=== PATIENT | female | born 1930 | race Asian ===

== ENCOUNTER → 2017-04-07 | Outpatient (CLI) | payer OTHER ==
[~2017-04-07] MED LIST: ACET-2744 PO; ASPI-825 PO; CALC500T62 PO; CLOP75 PO; LOSA50TA37 PO; METF850T2 PO; METO-391 PO; MULT1TAB70 PO; NIFE-4 PO; PANT40TA25 PO; RALO60 PO; SIMV20TA6 PO
== END | disposition home or self-care (01) ==
LOC: RADPV 09:50
PROVIDERS: ATTEND Internal Medicine
DX: M77.31 Calcaneal spur, right foot (principal)

== ENCOUNTER 2017-08-30 15:31 | Emergency (ER) | payer OTHER ==
[~2017-08-30] VITALS: Ht 153 cm; Wt 47.7 kg
[2017-08-30] MEDS ORDERED: SODIUM CHLORIDE 0.9% 250 ML IRRIG SOLUTION BOTTLE IRRIG ONE (16:15)
[2017-08-30 17:40] VITALS: BP 137/68
== END 2017-08-30 18:07 | disposition home or self-care (01) ==
LOC: EMS 15:33
DX: S00.03XA Contusion of scalp, initial encounter (principal); S00.81XA Abrasion of other part of head, initial encounter; I11.9 Hypertensive heart disease without heart failure; E11.9 Type 2 diabetes mellitus without complications; Z79.01 Long term (current) use of anticoagulants; W01.0XXA Fall on same level from slipping, tripping and stumbling without subsequent striking against object, initial encounter; Y93.89 Activity, other specified; Y92.89 Other specified places as the place of occurrence of the external cause; Y99.8 Other external cause status
CPT/HCPCS: 70450; 99284